=== PATIENT | female | born 2000 | race Caucasian/White ===

== ENCOUNTER 2024-03-10 14:14 | Emergency (ER) | payer BC ==
[~2024-03-10] VITALS: Ht 162.6 cm; Wt 117.9 kg
[2024-03-10 14:19] VITALS: BP_SYST 120; PULSE 95; RESP 18; TEMP 98.3; O2SAT 98
[2024-03-10] MEDS: KETOROLAC TROMETHAMINE 60 MG/2 ML VIAL IM ONE (15:12)
[2024-03-10] MEDS ORDERED: DICL20GE TP (15:59)
[2024-03-10] MEDS ORDERED: DICL75TA5 PO (15:59)
[2024-03-10 16:23] VITALS: BP_SYST 120; PULSE 95; RESP 18; TEMP 98.3; O2SAT 98
== END 2024-03-10 16:04 | disposition home or self-care (01) ==
LOC: SED 14:14
DX: S86.811A Strain of other muscle(s) and tendon(s) at lower leg level, right leg, initial encounter (principal); W50.2XXA Accidental twist by another person, initial encounter; Y93.89 Activity, other specified; Y92.89 Other specified places as the place of occurrence of the external cause; Y99.8 Other external cause status
CPT/HCPCS: 99283; 29505; 73564; 81025; 96372; J1885